=== PATIENT | female | born 1995 | race Caucasian/White ===

== ENCOUNTER 2017-05-24 21:11 | Emergency (ER) | payer OTHER ==
[2017-05-24] MEDS ORDERED: NS 0.9% 1000 ML* 1,000 ML IV ONE (22:10)
[2017-05-24] MEDS ORDERED: Ondansetron INJ* 2 MG/ML VIAL IV ONE (22:10)
[2017-05-24 23:06] LABS: Hematocrit 41 % (35-47); Hemoglobin 13.5 g/dl (12.0-16.0); Mean Corpuscular HGB Conc 33 g/dl (31-36); Mean Corpuscular Hemoglobin 30 pg (27-31); Mean Corpuscular Volume 90 fL (80-97); Mean Platelet Volume 8 um3 (7.4-10.4); Red Blood Count 4.51 10^6/ul (4.0-5.4); Red Cell Distribution Width 13 % (10.5-15)
[2017-05-24 23:25] LABS: ALT 12 U/L (7-52); AST 15 U/L (13-39); Albumin 4.2 g/dL (3.2-5.2); Alkaline Phosphatase 54 U/L (34-104); Anion Gap 7 mmol/L (2-11); BUN/Creatinine Ratio 16.7 (8-20); Blood Urea Nitrogen 14 mg/dL (6-24); CO2 Carbon Dioxide 32 mmol/L (22-32); Calcium 9.7 mg/dL (8.6-10.3); Chloride 100 mmol/L (101-111); EGFR African American 111.2 (>60); EGFR Non-African American 86.4 (>60); Globulin 3.3 g/dL (2-4); Glucose 102 mg/dL (70-100); Magnesium 2.1 mg/dL (1.9-2.7); Potassium 3.2 mmol/L (3.5-5.0); Sodium 139 mmol/L (133-145); Total Protein 7.5 g/dL (6.4-8.9)
[2017-05-25] MEDS ORDERED: Ondansetron ODT TAB* 4 MG PO ONE (00:16)
--- NOTE | 2017-05-25 00:18 | ED ---
GI/ HPI - HPI Summary HPI Summary: 22F presents with nausea and vomiting today. She states friend is with similar symptoms. denies eating anything different. has history of UC that is controlled. no fever. no diarrhea. no blood in stool. no previous abdominal surgeries. no fever, dysuria, hematuria, flank pain, urgency, frequency, vaginal discharge, or constipation. She feels dehyrated. She sometimes has generalized abdominal cramps. - History of Current Complaint Chief Complaint: EDNauseaVomitDiarrh Time Seen by Provider: 05/24/17 22:00 Stated Complaint: VOMITING Pain Intensity: 2 - Allergy/Home Medications Allergies/Adverse Reactions: Allergies Allergy/AdvReac Type Severity Reaction Status Date / Time Cefprozil [From Cefzil] Allergy Hives Verified 05/24/17 21:22 Penicillins [PCN] Allergy Hives Verified 05/24/17 21:22 PMH/Surg Hx/FS Hx/Imm Hx Endocrine/Hematology History: Denies: Hx Anticoagulant Therapy GI History: Reports: Hx Crohn's Disease - uc Infectious Disease History: No Infectious Disease History: Denies: Traveled Outside the [place] in Last 30 Days - Family History Known Family History: Positive: Hypertension - Social History Alcohol Use: Occasionally Substance Use Type: Reports: None Smoking Status (MU): Never Smoked Tobacco Review of Systems Negative: Fever Negative: Chest Pain Negative: Shortness Of Breath Positive: Abdominal Pain, Vomiting, Nausea. Negative: Diarrhea All Other Systems Reviewed And Are Negative: Yes Physical Exam Triage Information Reviewed: Yes Vital Signs On Initial Exam: Initial Vitals Temp Pulse Resp BP Pulse Ox 98.0 F 100 16 107/94 100 05/24/17 21:15 05/24/17 21:15 05/24/17 21:15 05/24/17 21:15 05/24/17 21:15 Vital Signs Reviewed: Yes Appearance: Positive: Well-Appearing Skin: Positive: Warm, Dry Head/Face: Positive: Normal Head/Face Inspection Eyes: Positive: Normal, EOMI, JESU, Conjunctiva Clear ENT: Positive: Normal ENT inspection, Pharynx normal, TMs normal Respiratory/Lung Sounds: Positive: Clear to Auscultation, Breath Sounds Present Cardiovascular: Positive: Normal, RRR Abdomen Description: Positive: Nontender, Soft Bowel Sounds: Positive: Present Musculoskeletal: Positive: Normal Neurological: Positive: Normal Psychiatric: Positive: Normal - Gorman Coma Scale Coma Scale Total: 15 Diagnostics - Vital Signs Vital Signs Temp Pulse Resp BP Pulse Ox 05/24/17 21:15 98.0 F 100 16 107/94 100 - Laboratory Lab Results: Lab Results 05/24/17 05/24/17 Range/Units 22:20 22:20 WBC 10.0 (3.5-10.8) 10^3/ul RBC 4.51 (4.0-5.4) 10^6/ul Hgb 13.5 (12.0-16.0) g/dl Hct 41 (35-47) % MCV 90 (80-97) fL MCH 30 (27-31) pg MCHC 33 (31-36) g/dl RDW 13 (10.5-15) % Plt Count 273 (150-450) 10^3/ul MPV 8 (7.4-10.4) um3 Neut % (Auto) 36.5 L (38-83) % Lymph % (Auto) 34.1 (25-47) % [place] % (Auto) 9.5 H (1-9) % Eos % (Auto) 18.8 H (0-6) % Baso % (Auto) 1.1 (0-2) % Absolute Neuts (auto) 3.6 (1.5-7.7) 10^3/ul Absolute Lymphs (auto) 3.4 (1.0-4.8) 10^3/ul Absolute Monos (auto) 0.9 H (0-0.8) 10^3/ul Absolute Eos (auto) 1.9 H (0-0.6) 10^3/ul Absolute Basos (auto) 0.1 (0-0.2) 10^3/ul Absolute Nucleated RBC 0.01 10^3/ul Nucleated RBC % 0.1 Sodium 139 (133-145) mmol/L Potassium 3.2 L (3.5-5.0) mmol/L Chloride 100 L (101-111) mmol/L Carbon Dioxide 32 (22-32) mmol/L Anion Gap 7 (2-11) mmol/L BUN 14 (6-24) mg/dL Creatinine 0.84 (0.51-0.95) mg/dL Est GFR ( Amer) 111.2 (>60) Est GFR (Non-Af Amer) 86.4 (>60) BUN/Creatinine Ratio 16.7 (8-20) Glucose 102 H (70-100) mg/dL Calcium 9.7 (8.6-10.3) mg/dL Magnesium 2.1 (1.9-2.7) mg/dL Total Bilirubin 0.40 (0.2-1.0) mg/dL AST 15 (13-39) U/L ALT 12 (7-52) U/L Alkaline Phosphatase 54 (34-104) U/L C-React Prot High Sens 0.50 mg/L Total Protein 7.5 (6.4-8.9) g/dL Albumin 4.2 (3.2-5.2) g/dL Globulin 3.3 (2-4) g/dL Albumin/Globulin Ratio 1.3 (1-3) Beta HCG, Quant < 0.60 mIU/mL Result Diagrams: 05/24/17 22:20 05/24/17 22:20 Lab Statement: Any lab studies that have been ordered have been reviewed, and results considered in the medical decision making process. GIGU Course/Dx - Course Course Of Treatment: 22F presents with nausea and vomiting today. She states friend is with similar symptoms. denies eating anything different. has history of UC that is controlled. no fever. no diarrhea. no blood in stool. no previous abdominal surgeries. no fever, dysuria, hematuria, flank pain, urgency , frequency, vaginal discharge, or constipation. She feels dehyrated. She sometimes has generalized abdominal cramps. on exam abdomen nontender. labs normal wbc. gave zofran and fluids and feeling better. patient understand and agrees with plan. - Diagnoses Differential Diagnoses - Female: Gastroenteritis (Viral), Gastroenteritis ( Bacterial), Urinary Tract Infection Provider Diagnoses: Vomiting Discharge - Discharge Plan Condition: Good Disposition: HOME Prescriptions: Ondansetron ODT TAB* [Zofran 4 MG Odt TAB*] 4 mg PO Q6H PRN #20 tab.odt PRN Reason: Nausea Patient Education Materials: Acute Nausea and Vomiting (ED) Referrals: [facility] [Primary Care Provider] - Additional Instructions: Can take Zofran every 6 hours as needed for nausea Drink small amounts of fluid as tolerated When able to eat follow BRAT diet: Bananas, rice, applesauce, toast Take ibuprofen or Tylenol for pain as needed every 6 hours Follow up with primary within 5 days Return to ED if develop fever that does not respond to Tylenol or ibuprofen, severe abdominal pain, or any new or worsening symptoms
[2017-05-25 01:07] VITALS: BP 111/83
== END 2017-05-25 01:06 | disposition home or self-care (01) ==
LOC: ED 21:11
DX: R11.10 Vomiting, unspecified (principal); K50.90 Crohn's disease, unspecified, without complications; Z32.02 Encounter for pregnancy test, result negative; Z88.1 Allergy status to other antibiotic agents; Z88.0 Allergy status to penicillin
CPT/HCPCS: 36415; 80053; 83735; 84702; 85025; 86141; 96361; 96374; 99284; A9270-GY; J2405

== ENCOUNTER 2017-05-29 13:06 | Emergency (ER) | payer OTHER ==
[2017-05-29 13:33] VITALS: BP 113/68
--- NOTE | 2017-05-29 15:10 | UC ---
Throat Pain/Nasal Arsenio HPI - HPI Summary HPI Summary: FOUR DAYS OF SORE THROAT SWOLLEN TONSILS FEVER. ON AZITHROMYCIN DAY #3, SYMPTOMS GETTING WORSE. - History of Current Complaint Chief Complaint: UCGeneralIllness Stated Complaint: SWOLLEN TONSILS Time Seen by Provider: 05/29/17 14:11 Hx Obtained From: Patient Hx Last Menstrual Period: last week Onset/Duration: Gradual Onset, Lasting Days Severity: Moderate Cough: None Associated Signs & Symptoms: Positive: Hoarseness, Fever - Epiglottits Risk Factors Epiglottis Risk Factors: Negative - Allergies/Home Medications Allergies/Adverse Reactions: Allergies Allergy/AdvReac Type Severity Reaction Status Date / Time Cefprozil [From Cefzil] Allergy Hives Verified 05/29/17 13:32 Penicillins [PCN] Allergy Hives Verified 05/29/17 13:32 Home Medications: Home Medications Adalimumab [Humira Pen] 40 mg SC WEEKLY 05/29/17 [History Confirmed 05/29/17] FLUoxetine CAP* [PROzac CAP*] 20 mg PO DAILY 05/29/17 [History Confirmed ] Mesalamine (NF) [Lialda (NF)] 1.2 gm PO DAILY 05/29/17 [History Confirmed ] PMH/Surg Hx/FS Hx/Imm Hx Previously Healthy: Yes Other History Of: Negative For: Anticoagulant Therapy - Surgical History Surgical History: None - Family History Known Family History: Positive: Hypertension - Social History Occupation: Student Lives: With Family Alcohol Use: Occasionally Substance Use Type: None Smoking Status (MU): Never Smoked Tobacco Review of Systems Constitutional: Fever Skin: Negative Eyes: Negative ENT: Sore Throat Respiratory: Negative Cardiovascular: Negative Gastrointestinal: Negative Genitourinary: Negative Motor: Negative Neurovascular: Negative Musculoskeletal: Negative Neurological: Negative Psychological: Negative Is Patient Immunocompromised?: No All Other Systems Reviewed And Are Negative: Yes Physical Exam Triage Information Reviewed: Yes Appearance: No Pain Distress, Well-Nourished, Ill-Appearing Vital Signs: Initial Vital Signs Temp 97.9 F 05/29/17 13:29 Pulse 106 05/29/17 13:29 Resp 16 05/29/17 13:29 BP 113/68 05/29/17 13:29 Pulse Ox 98 05/29/17 13:29 Vital Signs Reviewed: Yes Eye Exam: Normal ENT: Positive: Hearing grossly normal, Pharyngeal erythema, TM red, Tonsillar swelling, Tonsillar exudate Dental Exam: Normal Neck: Positive: Supple, Nontender, Enlarged Nodes @ - BILATERAL ANTERIOR LN Respiratory Exam: Normal Respiratory: Positive: Chest non-tender, Lungs clear, Normal breath sounds, No respiratory distress, No accessory muscle use Cardiovascular Exam: Normal Cardiovascular: Positive: RRR, No Murmur, Pulses Normal, Brisk Capillary Refill Abdominal Exam: Normal Abdomen Description: Positive: Nontender, No Organomegaly Musculoskeletal Exam: Normal Musculoskeletal: Positive: Strength Intact, ROM Intact Neurological Exam: Normal Psychological Exam: Normal Skin Exam: Normal Throat Pain/Nasal Course/Dx - Differential Dx/Diagnosis Differential Diagnosis/HQI/PQRI: Mononucleosis, Pharyngitis, Sinusitis, Tonsillitis, URI Provider Diagnoses: STREP TONSILITIS Discharge - Discharge Plan Condition: Stable Disposition: HOME Prescriptions: Clindamycin Cap(NF) [Clindamycin Cap 300 mg Cap(NF)] 300 mg PO TID #30 cap Patient Education Materials: Strep Throat (ED) Forms: *School Release Referrals: [facility] [Primary Care Provider] -
--- NOTE | 2017-05-31 14:54 | UC ---
Progress - Progress Note Progress Note: 3+ Strep group A Pt on clinda no change [facility] 05/31/17 [id number]
== END 2017-05-29 15:00 | disposition home or self-care (01) ==
LOC: UCEAST 13:06
DX: J03.00 Acute streptococcal tonsillitis, unspecified (principal); Z88.0 Allergy status to penicillin; B95.0 Streptococcus, group A, as the cause of diseases classified elsewhere
CPT/HCPCS: 87070; 87651; 99212; G0463

== ENCOUNTER 2017-06-13 13:37 | Emergency (ER) | payer OTHER ==
[2017-06-13 13:46] VITALS: BP 121/77
--- NOTE | 2017-06-13 14:45 | ED ---
Throat Pain/Nasal Congestion - HPI Summary HPI Summary: Pt here w/ tonsilitis x 1 month. Was seen here at on May 29, 2017 and dx'd strep. Was placed on clindamycin which she took for 7 days but then stopped as she developed a diffuse rash. Reports it's not pruritic unless she takes a hot shower - otherwise does not bother her. Has been taking benadryl at night - not sure if it's helping the rash. Tonsils are still swollen but she is able to drink and eat. She denies fever, chills, N/V/D, chest pain, cough, SOB, neck pain/stiffness, WILEY. She was seen at [facility] and tested for mono ( which she reports was negative) as she's had tonsilitis for 1 month now. She has an appt w/ ENT on Jun 21 to assess. Caveat: she has Ulcerative Colitis and has been on humira - stopped for 1 week while she had strep but then restarted last week and this week. Unfortunately she is allergic to PCN/ cephalosporins (mom reports reactions are anaphylactic). - History of Current Complaint Chief Complaint: [facility] Time Seen by Provider: 06/13/17 14:23 Hx Obtained From: Patient, Family/Senior Statistical Programmer - spoke w/ mother via phone - Allergies/Home Medications Allergies/Adverse Reactions: Allergies Allergy/AdvReac Type Severity Reaction Status Date / Time Cefprozil [From Cefzil] Allergy Hives Verified 06/13/17 13:46 Penicillins [PCN] Allergy Hives Verified 06/13/17 13:46 PMH/Surg Hx/FS Hx/Imm Hx Previously Healthy: No - tonsilitis x 1 month Endocrine/Hematology History: Reports: Autoimmune Disease - ulcerative colitis - on humira Denies: Hx Anticoagulant Therapy GI History: Reports: Hx Crohn's Disease - Ulcerative colitis Infectious Disease History: No Infectious Disease History: Denies: Traveled Outside the [place] in Last 30 Days - Family History Known Family History: Positive: Hypertension - Social History Occupation: Student Lives: Dormitory/Roommates Alcohol Use: Occasionally Hx Substance Use: No Substance Use Type: Reports: None Hx Tobacco Use: No Smoking Status (MU): Never Smoked Tobacco Review of Systems Constitutional: Negative Negative: Fever, Chills, Fatigue Eyes: Negative Negative: Photophobia, Blurred Vision, Diplopia, Drainage, Erythema Positive: Sore Throat. Negative: Ear Ache, Nasal Discharge Cardiovascular: Negative Negative: Chest Pain Respiratory: Negative Negative: Shortness Of Breath, Cough Gastrointestinal: Negative Negative: Abdominal Pain, Vomiting, Diarrhea, Nausea Positive: no symptoms reported. Negative: hematuria Musculoskeletal: Negative Negative: Arthralgia, Myalgia, Decreased ROM, Edema Positive: Rash Neurological: Negative Negative: Headache Psychological: Normal All Other Systems Reviewed And Are Negative: Yes Physical Exam Triage Information Reviewed: Yes Vital Signs On Initial Exam: Initial Vitals Temp Pulse Resp BP Pulse Ox 98.7 F 102 16 121/77 100 06/13/17 13:41 06/13/17 13:41 06/13/17 13:41 06/13/17 13:41 06/13/17 13:41 Vital Signs Reviewed: Yes Appearance: Positive: Well-Appearing, No Pain Distress, Well-Nourished Skin: Positive: Warm, Dry - diffuse pink maculopapular flaking spotted/patchy rash over torso - more prominent on anterior aspect , wraps around flanks Head/Face: Positive: Normal Head/Face Inspection - sinsues NTTP Eyes: Positive: Normal, EOMI, Conjunctiva Clear. Negative: Conjunctiva Inflammed, Discharge ENT: Positive: Hearing grossly normal, Pharynx normal, TMs normal, Tonsillar swelling, Uvula midline. Negative: Nasal congestion, Nasal drainage, Tonsillar exudate, Trismus, Muffled voice, Hoarse voice, Sinus tenderness Dental: Negative: Abscess @ Neck: Positive: Supple, Nontender, No Lymphadenopathy. Negative: Nuchal Rigidity Respiratory/Lung Sounds: Positive: Clear to Auscultation, Breath Sounds Present. Negative: Rales, Rhonchi, Wheezes Cardiovascular: Positive: Normal, RRR, S1, S2. Negative: Murmur, Rub Abdomen Description: Positive: Nontender, No Organomegaly, Soft Bowel Sounds: Positive: Present Musculoskeletal: Positive: Normal, Strength/ROM Intact Neurological: Positive: Normal, Sensory/Motor Intact, Alert, Oriented to Person Place, Time, CN Intact II-III, Reflexes Intact Psychiatric: Positive: Normal Diagnostics - Vital Signs Vital Signs Temp Pulse Resp BP Pulse Ox 06/13/17 13:41 98.7 F 102 16 121/77 100 - Laboratory Lab Statement: Any lab studies that have been ordered have been reviewed, and results considered in the medical decision making process. EENT Course/Dx - Course Course Of Treatment: Pt here w/ persistent tonsilitis x 1 month. Was dx'd w/ strep > 2 weeks ago and tx'd w/ clindamycin as she's PCN allergic. Stopped after 7 days d/t rash. Rash persists in presence but appears mild and is not bothersome to pt. She has UC for which she takes humira - stopped for 1 week but has returned to use for a full week and gave herself another shot this week. Ada was neg at [facility]. Repeat strep + here today. Checked a U/A for glomerulonephritis - pt's urine does not reveal blood beyond trace and no protein or bacteria. Okay for d/c w/ close monitoring. Discussed she either has recalcitrant strep d/t undertx w/ co-tx of humira or possibly colonized as she had fever, chills and worse ST at onset - has not had these since. Will initiate zpak w/ close f/u in the event this does not address strep or if she needs a longer course. Also encouraged to contact GI specialist to see if cessation of humira until strep clears is appropriate or not. Furthermore, converastion with mom about avioding steroids for rash and tonsils to reduce risk of further suppressing immune system - tonsilitis and rash are both tolerable. Offered supportive care. Printed a copy of urine lab for parents. Danger s/sx of when to return to ED discussed. Pt and mom agree w/ plan. - Diagnoses Provider Diagnoses: Acute streptococcal tonsillitis - Provider Notifications Discussed Care Of Patient With: Jeremy Saucedo Discharge - Discharge Plan Condition: Stable Disposition: HOME Prescriptions: Azithromycin TAB* [Zithromax TAB (Z-NAKUL) 250 mg #6 tabs] 2 tab PO .TODAY, THEN 1 DAILY #1 nakul Patient Education Materials: Strep Throat (ED) Forms: *School Release Referrals: [facility] [Primary Care Provider] - Additional Instructions: Gargle with warm salt water 2-3 x day Throat lozenges as needed for comfort Warm tea with honey Continue to drink plenty of hydrating fluids Sleep 8+ hours a night - nap when possible to allow body to heal Complete antibiotics as directed - followup with PCP prior to completion in the event you need a longer course Start probiotics in between doses to prevent diarrhea, yeast infection and flair up of ulcerative colitis - if any of these occur, call PCP or go to ED if dehydrated *If you develop fever, chills, difficulty breathing or swallowing, neck pain or stiff neck, worsening of rash, abdominal pain, vomiting or diarrhea, go to the ED CALL PCP TO DISCUSS CONTINUATION VS. CESSATION OF HUMIRA WHILE TREATING STREP THROAT
== END 2017-06-13 15:36 | disposition home or self-care (01) ==
LOC: UCEAST 13:37
DX: J03.00 Acute streptococcal tonsillitis, unspecified (principal); J35.01 Chronic tonsillitis
CPT/HCPCS: 81003; 87086; 87651; 99212; G0463

== ENCOUNTER 2017-07-24 03:24 | Emergency (ER) | payer OTHER ==
[2017-07-24] MEDS ORDERED: oxyCODONE/Acetamin 5/325 MG* TAB PO ONE (03:43)
[2017-07-24] MEDS ORDERED: Ondansetron ODT TAB* 4 MG PO ONE (03:44)
[2017-07-24 04:14] VITALS: BP 125/80
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
== END 2017-07-24 04:13 | disposition home or self-care (01) ==
LOC: ED 03:24
DX: S09.90XA Unspecified injury of head, initial encounter (principal); W50.0XXA Accidental hit or strike by another person, initial encounter; Y93.89 Activity, other specified; Y92.9 Unspecified place or not applicable; M54.2 Cervicalgia; R11.0 Nausea; J45.909 Unspecified asthma, uncomplicated; Z88.1 Allergy status to other antibiotic agents; K51.90 Ulcerative colitis, unspecified, without complications
CPT/HCPCS: 99282; A9270-GY

== ENCOUNTER 2018-03-11 23:05 | Emergency (ER) | payer SELFPAY ==
[2018-03-11] MEDS ORDERED: Morphine INJ* 2 MG/ML 1 ML SYRINGE (TWO MG - NEW SYRINGE VERSION) IV ONE (23:33)
[2018-03-11] MEDS ORDERED: Metoclopramide IV* 5 MG/ML 2 ML VIAL IV ONE (23:33)
[2018-03-11] MEDS ORDERED: Morphine INJ* 2 MG/ML 1 ML SYRINGE (TWO MG - NEW SYRINGE VERSION) IV PRN (23:33)
--- NOTE | 2018-03-11 23:40 | ED ---
Abdominal Pain/Female - HPI Summary HPI Summary: This patient is a 22 year old F presenting to [facility] with a chief complaint of constant left side abdominal pain since 16:00 today. Patient notes that her pain appears to worsen in waves. The patient rates the pain 6/10 in severity. Symptoms aggravated by food. Symptoms alleviated by nothing. Patient reports nausea and vomiting. Patient denies fever, diarrhea, burning with urination, or dysuria. Patient notes that she took a Zofran earlier today but it did not alleviate her symptoms. Patient has ulcerative colitis and notes she is just coming out of a flare-up. Patient notes that she has never had pain like this before. Patient also notes she may have digestive motility problems but has not yet received a diagnosis. Patient takes Entyvio. - History of Current Complaint Stated Complaint: ABD PAIN Hx Obtained From: Patient Hx Last Menstrual Period: 05/30/17 Onset/Duration: Sudden Onset, Lasting Hours, Still Present Timing: Constant Severity Initially: Mild Severity Currently: Mild Pain Intensity: 6 Pain Scale Used: 0-10 Numeric Location: Discrete At: LUQ Radiates: No Aggravating Factor(s): Food Alleviating Factor(s): Nothing Associated Signs and Symptoms: Positive: Nausea, Vomiting. Negative: Fever, Diarrhea Allergies/Adverse Reactions: Allergies Allergy/AdvReac Type Severity Reaction Status Date / Time cefprozil [From Cefzil] Allergy Hives Verified 03/11/18 23:20 PMH/Surg Hx/FS Hx/Imm Hx Endocrine/Hematology History: Denies: Hx Anticoagulant Therapy Respiratory History: Reports: Hx Asthma GI History: Reports: Hx Crohn's Disease - Ulcerative colitis - Surgical History Surgery Procedure, Year, and Place: colonoscopy Infectious Disease History: No Infectious Disease History: Denies: Traveled Outside the [place] in Last 30 Days - Family History Known Family History: Positive: Hypertension - Social History Occupation: Student Alcohol Use: Occasionally Hx Substance Use: No Substance Use Type: Reports: None Hx Tobacco Use: No Smoking Status (MU): Never Smoked Tobacco Review of Systems Negative: Fever Negative: Epistaxis Negative: Cough Positive: Abdominal Pain, Vomiting, Nausea. Negative: Diarrhea Negative: burning, dysuria, hematuria All Other Systems Reviewed And Are Negative: Yes Physical Exam - Summary Physical Exam Summary: Appearance: Well-appearing, Well-nourished, lying in bed comfortably Skin: Warm, dry, no obvious rash Eyes: sclera anicteric, no conjunctival pallor ENT: mucous membranes moist, pharynx appears normal Neck: Supple, nontender Respiratory: Clear to auscultation, no signs of respiratory distress Cardiovascular: Normal S1, S2. No murmurs. Normal distal pulses in tibial and radial bilaterally. Abdomen: Soft, tenderness in LUQ, no peritoneal signs, normal active bowel sounds present Musculoskeletal: Normal, Strength/ROM Intact Neurological: A&Ox3, awake and alert, mentation is normal, speech is fluent and appropriate Psychiatric: affect is normal, does not appear anxious or depressed Triage Information Reviewed: Yes Vital Signs On Initial Exam: Initial Vitals Temp Pulse Resp BP Pulse Ox 98.5 F 98 16 114/79 99 03/11/18 23:10 03/11/18 23:10 03/11/18 23:10 03/11/18 23:10 03/11/18 23:10 Vital Signs Reviewed: Yes Diagnostics - Vital Signs Vital Signs Temp Pulse Resp BP Pulse Ox 03/11/18 23:10 98.5 F 98 16 114/79 99 - Laboratory Result Diagrams: 03/11/18 23:43 03/11/18 23:43 Lab Statement: Any lab studies that have been ordered have been reviewed, and results considered in the medical decision making process. - CT CT Abd/Pelvis CT Interpretation: No Acute Changes - Impression: no acute findings in the abdomen or pelvis. No evidence for an acute colitis. Moderate amount of stool in the cecum, ascending colon, and transverse colon and a mild amount of stool in the descending colon. No evidence for a bowel obstruction. Dr. Goodman has reviewed this report. CT Interpretation Completed By: Radiologist Abdominal Pain Fem Course/Dx - Diagnoses Provider Diagnoses: Abdominal pain, Non-ulcer dyspepsia Discharge - Sign-Out/Discharge Documenting (check all that apply): Patient Departure - Discharge Plan Condition: Good Disposition: HOME Prescriptions: Omeprazole CAP* [Prilosec CAP* 20 MG] 20 mg PO DAILY #30 cap. [facility]errals[facility] [Z.BUSINESS, APPLICATION, OTHER] - - Billing Disposition and Condition Condition: GOOD Disposition: Home - Attestation Statements Document Initiated by Scribe: Yes Documenting Scribe: Anne Samuel Provider For Whom Scribe is Documenting (Include Credential): Олег Goodman MD Scribe Attestation: I, Anne Samuel, scribed for Олег Goodman MD on 03/12/18 at 0546. Scribe Documentation Reviewed: Yes Provider Attestation: The documentation as recorded by the scribe, Anne Samuel accurately reflects the service I personally performed and the decisions made by me, Олег Goodman MD
[2018-03-11 23:49] LABS: ABS Basophils 0 10^3/ul (0-0.2); ABS Eosinophils 0.3 10^3/ul (0-0.6); ABS Lymphocytes 2.3 10^3/ul (1.0-4.8); ABS Monocytes 0.7 10^3/ul (0-0.8); ABS Neutrophils 4.1 10^3/ul (1.5-7.7); ABS Nucleated RBC 0 10^3/ul; Eosinophil % 4.4 % (0-6); Hematocrit 40 % (35-47); Hemoglobin 13.5 g/dl (12.0-16.0); Lymphocyte % 30.8 % (25-47); Mean Corpuscular HGB Conc 34 g/dl (31-36); Mean Corpuscular Hemoglobin 30 pg (27-31); Mean Corpuscular Volume 87 fL (80-97); Mean Platelet Volume 7.6 um3 (7.4-10.4); Nucleated Red Blood Cells % 0; Platelet Count 290 10^3/ul (150-450); Red Blood Count 4.54 10^6/ul (4.00-5.40); Red Cell Distribution Width 14 % (10.5-15); White Blood Count 7.4 10^3/ul (3.5-10.8)
[2018-03-12] MEDS ORDERED: NS 0.9% 1000 ML*IV.FLUID IV ONE
[2018-03-12] MEDS ORDERED: Iohexol 300* (CONTRAST) 10 ML SDV IV ONE (01:30)
[2018-03-12 01:59] LABS: Urine Appearance Clear; Urine Blood Negative (Negative); Urine Color Straw; Urine Ketones Negative (Negative); Urine Protein Negative (Negative); Urine Specific Gravity 1.019 (1.010-1.030); Urine Urobilinogen Negative (Negative)
--- NOTE | 2018-03-12 02:52 | RAD ---
EXAM: CT Abdomen and Pelvis With Intravenous Contrast CLINICAL HISTORY: 22 years old, female; Left sided abdominal pain, nausea, and emesis. History of ulcerative colitis. TECHNIQUE: Axial computed tomography images of the abdomen and pelvis with intravenous contrast. All CT scans at this facility use at least one of these dose optimization techniques: automated exposure control; mA and/or kV adjustment per patient size (includes targeted exams where dose is matched to clinical indication); or iterative reconstruction. Coronal and sagittal reformatted images were created and reviewed. CONTRAST: 69 mL of OMNI administered intravenously. COMPARISON: No relevant prior studies available. FINDINGS: Lung bases: Normal. No mass. No consolidation. ABDOMEN: Liver: Normal. Gallbladder and bile ducts: No calcifications are seen in the gallbladder to suggest calculi. There is no gallbladder wall thickening, pericholecystic fluid, or pericholecystic inflammatory changes. No dilation of the intrahepatic or extrahepatic bile ducts is noted. Pancreas: Normal. Spleen: Normal. No splenomegaly. Adrenals: Normal. Kidneys and ureters: The kidneys are normal in appearance. No renal lesion is identified. No calculi are seen in the kidneys or ureters. There is no hydronephrosis or hydroureter. Stomach and bowel: There is no evidence for a bowel obstruction, diverticulosis, diverticulitis, colitis, pneumatosis intestinalis, intussusception, volvulus, or perforated viscus. The sigmoid colon and rectum are decompressed, limiting their optimal evaluation. There is a moderate amount of stool in the cecum, ascending colon, and transverse colon and a mild amount of stool in the descending colon. Enteric contrast material is present in the stomach and small bowel. There is no enteric contrast material in the colon. PELVIS: Appendix: Normal. There is no evidence for appendicitis. Bladder: The distended urinary bladder is normal in appearance. No stones or masses are seen in the bladder. The contour of the bladder is normal. Reproductive: The uterus is anterverted and unremarkable. The ovaries are unremarkable. ABDOMEN and PELVIS: Intraperitoneal space: No free air or free fluid. 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 The imaged bony structures are intact. There is no suspicious osteolytic or osteoblastic lesion. There is a mild to moderate levoscoliosis of the lumbar spine. Soft tissues: Unremarkable. Vasculature: The abdominal aorta is normal in caliber. The renal arteries, celiac artery, superior mesenteric artery, and inferior mesenteric artery are patent. The portal veins, splenic vein, superior mesenteric vein, and inferior mesenteric vein are patent. Lymph nodes: No lymphadenopathy. IMPRESSION: 1. No acute findings in the abdomen or pelvis. No evidence for an acute colitis. 2. Moderate amount of stool in the cecum, ascending colon, and transverse colon and a mild amount of stool in the descending colon. No evidence for a bowel obstruction.
[2018-03-12] MEDS ORDERED: Omeprazole CAP* 20 MG PO ONE (03:20)
[2018-03-12 03:43] VITALS: BP 119/65
== END 2018-03-12 03:43 | disposition home or self-care (01) ==
LOC: ED 23:05
CPT/HCPCS: 36415; 74177; 80053; 81003; 83690; 84702; 85025; A9270-GY; J2270; J2765; Q9967

== ENCOUNTER 2018-04-04 15:49 | Emergency (ER) | payer OTHER ==
[2018-04-04] MEDS ORDERED: Famotidine IV* 10 MG/ML 2 ML (20 mg) IV SLOW PU ONE (16:42)
[2018-04-04] MEDS ORDERED: Dexamethasone IV* 4 MG/ML 1 ML (4 MG) IV SLOW PU ONE (16:42)
--- NOTE | 2018-04-04 16:51 | ED ---
Allergic Reaction/Systemic - HPI Summary HPI Summary: 23 year old females presents with allergic reaction today. States she had a reaction to her humaria which she took two days ago. States the humaria normal makes her sick but she's never had this reaction before. 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 States that she felt very short of breath and felt like she was going to pass out. States she waited some time and then used her EpiPen. She called EMS and they gave her a DuoNeb and some Benadryl and she is feeling better. She denies any symptoms currently. She denies any chest or shortness breath. No difficulty swallowing. No rash. She is on humaria for ulcerative colitis. No recent illness. No other new products. Did not eat anything different. she has a history of asthma. - History of Current Complaint Chief Complaint: EDAllergicReaction Time Seen by Provider: 04/04/18 16:36 Hx Last Menstrual Period: 05/30/17 Pain Intensity: 0 - Allergies/Home Medications Allergies/Adverse Reactions: Allergies Allergy/AdvReac Type Severity Reaction Status Date / Time cefprozil [From Cefzil] Allergy Hives Verified 04/04/18 16:25 PMH/Surg Hx/FS Hx/Imm Hx Endocrine/Hematology History: Denies: Hx Anticoagulant Therapy Respiratory History: Reports: Hx Asthma GI History: Reports: Hx Crohn's Disease - Ulcerative colitis - Surgical History Surgery Procedure, Year, and Place: colonoscopy - Immunization History Immunizations Up to Date: Yes Infectious Disease History: No Infectious Disease History: Denies: Traveled Outside the [place] in Last 30 Days - Family History Known Family History: Positive: Hypertension - Social History Alcohol Use: Occasionally Hx Substance Use: No Substance Use Type: Reports: None Hx Tobacco Use: No Smoking Status (MU): Never Smoked Tobacco Review of Systems Negative: Fever Positive: Chest Pain Positive: Shortness Of Breath - resolved. Negative: Cough All Other Systems Reviewed And Are Negative: Yes Physical Exam Triage Information Reviewed: Yes Vital Signs On Initial Exam: Initial Vitals Temp Pulse Resp BP Pulse Ox 99.4 F 110 20 120/83 99 04/04/18 16:14 04/04/18 16:14 04/04/18 16:14 04/04/18 16:14 04/04/18 16:14 Vital Signs Reviewed: Yes Appearance: Positive: Well-Appearing Skin: Positive: Warm, Dry Head/Face: Positive: Normal Head/Face Inspection Eyes: Positive: Normal, EOMI, JESU, Conjunctiva Clear ENT: Positive: Normal ENT inspection, Pharynx normal, TMs normal Respiratory/Lung Sounds: Positive: Clear to Auscultation, Breath Sounds Present Cardiovascular: Positive: Normal, RRR Abdomen Description: Positive: Nontender, Soft Bowel Sounds: Positive: Present Musculoskeletal: Positive: Normal Neurological: Positive: Normal Psychiatric: Positive: Normal Diagnostics - Vital Signs Vital Signs Temp Pulse Resp BP Pulse Ox 04/04/18 16:14 99.4 F 110 20 120/83 99 - Laboratory Result Diagrams: 04/04/18 16:52 04/04/18 16:52 Lab Statement: Any lab studies that have been ordered have been reviewed, and results considered in the medical decision making process. Re-Evaluation - Re-Evaluation First Eval Re-Evaluation Time: 17:53 Change: Unchanged Comment: no symptoms still, feels comfortable going home Allergic Reaction Course/Dx - Course Course Of Treatment: 23 year old females presents with allergic reaction today. States she had a reaction to her humaria which she took two days ago. States the humaria normal makes her sick but she's never had this reaction before. 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 States that she felt very short of breath and felt like she was going to pass out. States she waited some time and then used her EpiPen. She called EMS and they gave her a DuoNeb and some Benadryl and she is feeling better. She denies any symptoms currently. She denies any chest or shortness breath. No difficulty swallowing. No rash. She is on humaria for ulcerative colitis. No recent illness. No other new products. Did not eat anything different. she has a history of asthma. on exam she has normal physical exam and is asx. lab work normal. gave decadon and pepcid and observed. will send home on prednisone. told to call gi to discuss meds. patient understand and agrees with plan. - Diagnoses Differential Diagnosis/HQI/PQRI: Positive: Anaphylaxis, Bronchospasm, Local Allergic Reaction Provider Diagnoses: Allergic reaction Discharge - Sign-Out/Discharge Documenting (check all that apply): Patient Departure - Discharge Plan Condition: Good Disposition: HOME Prescriptions: Famotidine TAB* [Pepcid 20 MG TAB*] 20 mg PO DAILY #4 tab hydrOXYzine HCL TAB* [Atarax 25 MG TAB*] 25 mg PO QID PRN #19 tab PRN Reason: Allergy Symptoms predniSONE TAB* [Deltasone TAB*] 50 mg PO DAILY #4 tab Patient Education Materials: Anaphylaxis (ED) Referrals: No Primary Care Phys,NOPCP [Primary Care Provider] - Additional Instructions: Take hydroxyzine every 6 hours for next 5 days Take Pepcid once a day for 5 days Take steroid once a day for 4 days starting tomorrow call GI to discuss reaction Return to ED if shortness of breath, chest pain, or if develop any new or worsening symptoms - Billing Disposition and Condition Condition: GOOD Disposition: Home
[2018-04-04 17:01] LABS: ABS Basophils 0 10^3/ul (0-0.2); ABS Eosinophils 0.1 10^3/ul (0-0.6); ABS Lymphocytes 1.4 10^3/ul (1.0-4.8); ABS Monocytes 0.8 10^3/ul (0-0.8); ABS Neutrophils 8.3 10^3/ul (1.5-7.7); ABS Nucleated RBC 0 10^3/ul; Eosinophil % 1.2 % (0-6); Hematocrit 39 % (35-47); Hemoglobin 12.9 g/dl (12.0-16.0); Lymphocyte % 13.6 % (25-47); Mean Corpuscular HGB Conc 33 g/dl (31-36); Mean Corpuscular Hemoglobin 30 pg (27-31); Mean Corpuscular Volume 89 fL (80-97); Nucleated Red Blood Cells % 0; Platelet Count 209 10^3/ul (150-450); Red Blood Count 4.39 10^6/ul (4.00-5.40); Red Cell Distribution Width 14 % (10.5-15); White Blood Count 10.6 10^3/ul (3.5-10.8)
[2018-04-04 17:20] LABS: EGFR Non-African American 113.1 (>60)
[2018-04-04 17:53] VITALS: BP 118/70
== END 2018-04-04 17:58 | disposition home or self-care (01) ==
LOC: ED 15:49
DX: T78.40XA Allergy, unspecified, initial encounter (principal); X58.XXXA Exposure to other specified factors, initial encounter; Y92.9 Unspecified place or not applicable
CPT/HCPCS: 36415; 80053; 84702; 85025; 86140; 96374; 96375; 99283; J1100

== ENCOUNTER 2018-06-01 18:03 | Emergency (ER) | payer OTHER ==
[2018-06-01] MEDS ORDERED: NS 0.9% 1000 ML* 1,000 ML IV ONE (18:40)
--- NOTE | 2018-06-01 19:01 | ED ---
Syncope/Near Syncope - HPI Summary HPI Summary: 23 year old female presents via EMS with syncopal episode. States at approximately 17:10 this evening she stood up to change her shirt and became lightheaded and loss consciousness. This was an unwitnessed episode but her roommate states that she called out to her and when she came into her room she was acting at baseline. She thinks she may have hit the back of her head as it is a little sore. Patient reports she has been having episodes feeling like her heart is beating very fast for the past 2 days. Denies headache, visual disturbances, speech difficulties, extremity weakness, numbness, tingling, chest pain, SOB, abdominal pain, nausea, vomiting, diarrhea, dysuria, frequency , urgency, loss of bowel or bladder control. - History Of Current Complaint Chief Complaint: EDSyncope Time Seen by Provider: 06/01/18 18:14 Hx Obtained From: Patient Onset/Duration: Sudden Onset Context: Unwitnessed, Loss Of Consciousness Associated Head Trauma: No Aggravating Factor(s): Position Change Alleviating Factor(s): Nothing Associated Signs And Symptoms: Palpitations - Allergies/Home Medications Allergies/Adverse Reactions: Allergies Allergy/AdvReac Type Severity Reaction Status Date / Time adalimumab [From Humira] Allergy Anaphylatic Verified 06/01/18 18:13 Shock cefprozil [From Cefzil] Allergy Hives Verified 04/04/18 16:25 infliximab [From Remicade] Allergy Unknown Verified 06/01/18 18:13 Reaction Details Tree Nuts Allergy Anaphylatic Verified 06/01/18 19:04 Shock Home Medications: Home Medications Entyvio* 1 dose INFUSION SEE INSTRUCTIONS 06/01/18 [History Confirmed 06/01/18] Mesalamine [Lialda] 1.2 gm PO QID 06/01/18 [History Confirmed 06/01/18] PMH/Surg Hx/FS Hx/Imm Hx Previously Healthy: Yes Endocrine/Hematology History: Denies: Hx Anticoagulant Therapy Respiratory History: Reports: Hx Asthma GI History: Reports: Other GI Disorders - Ulcerative colitis - Surgical History Surgery Procedure, Year, and Place: colonoscopy Infectious Disease History: No Infectious Disease History: Denies: Traveled Outside the [place] in Last 30 Days - Family History Known Family History: Positive: Hypertension - Social History Occupation: Student Lives: Dormitory/Roommates Alcohol Use: Occasionally Hx Substance Use: No Substance Use Type: Reports: None Hx Tobacco Use: No Smoking Status (MU): Never Smoked Tobacco Review of Systems Negative: Fever, Chills Negative: Photophobia, Blurred Vision, Diplopia Positive: Palpitations. Negative: Chest Pain Negative: Shortness Of Breath, Cough Negative: Abdominal Pain, Vomiting, Diarrhea, Nausea Negative: dysuria, frequency, incontinence, urgency Positive: Syncope. Negative: Headache, Weakness, Paresthesia, Numbness, Slurred Speech All Other Systems Reviewed And Are Negative: Yes Physical Exam - Summary Physical Exam Summary: GENERAL APPEARANCE: Well developed, well nourished, alert and cooperative, and appears to be in no acute distress. HEAD: Atraumatic. normocephalic. EYES: PERRL, EOM intact. Vision is grossly intact. EARS: External auditory canals and tympanic membranes clear, hearing grossly intact. NOSE: No nasal discharge. THROAT: Oral cavity and pharynx normal. No inflammation, swelling, exudate, or lesions. Teeth and gingiva in good general condition. NECK: Neck supple, non-tender without lymphadenopathy. CARDIAC: Normal S1 and S2. No S3, S4 or murmurs. Rhythm is regular. There is no peripheral edema, cyanosis or pallor. Extremities are warm and well perfused. Capillary refill is less than 2 seconds. LUNGS: Clear to auscultation and percussion without rales, rhonchi, wheezing or diminished breath sounds. ABDOMEN: Positive bowel sounds. Soft, nondistended, nontender. No guarding or rebound. No masses or hepatosplenomegally. MUSKULOSKELETAL: ROM intact to all extremities. No joint erythema or tenderness. Normal muscular development. Normal gait. BACK: Examination of the spine reveals normal gait and posture, no spinal deformity or tenderness, decreased range of motion or muscular spasm. EXTREMITIES: No significant deformity or joint abnormality. No edema. Peripheral pulses intact. NEUROLOGICAL: CN II-XII intact. Strength and sensation symmetric and intact throughout. Reflexes 2+ throughout. Cerebellar testing normal. SKIN: Skin normal color, texture and turgor with no lesions or eruptions. Vital Signs On Initial Exam: Initial Vitals Temp Pulse Resp BP Pulse Ox 99 F 100 18 126/88 99 06/01/18 18:09 06/01/18 18:09 06/01/18 18:09 06/01/18 18:09 06/01/18 18:09 Diagnostics - Vital Signs Vital Signs Temp Pulse Resp BP Pulse Ox 06/01/18 18:43 97 19 130/85 100 06/01/18 18:13 94 22 132/89 100 06/01/18 18:09 99 F 100 18 126/88 99 - Laboratory Result Diagrams: 06/01/18 19:18 06/01/18 19:18 Lab Statement: Any lab studies that have been ordered have been reviewed, and results considered in the medical decision making process. - EKG No standard instances Cardiac Rate: NL EKG Rhythm: Sinus Rhythm ST Segment: Normal Ectopy: None Summary of EKG Findings: NSR without ectopy. QTc 484 Course/Dx Course Of Treatment: 23 year old female presents via EMS with syncopal episode. States at approximately 17:10 this evening she stood up to change her shirt and became lightheaded and loss consciousness. This was an unwitnessed episode but her roommate states that she called out to her and when she came into her room she was acting at baseline. She thinks she may have hit the back of her head as it is a little sore. Patient reports she has been having episodes feeling like her heart is beating very fast for the past 2 days. Denies headache, visual disturbances, speech difficulties, extremity weakness, numbness, tingling, chest pain, SOB, abdominal pain, nausea, vomiting, diarrhea, dysuria, frequency , urgency, loss of bowel or bladder control. Her exam, orthostatic VS, labs, and EKG were unremarkable. Vital signs remained stable throughout her evaluation and there were no adverse episodes noted during her cardiac monitoring. She was able to ambulate well in the unit with no further syncopal episodes. Suspect that her event was an orthostatic syncope since it was associated with a sudden change in postion however with her reports of feeling as if her heart has been beating fast for the last few days I cannot fully rule out a cardiac origin. She has been referred to the [facility] for further evaluation since she does not have a local PCP. Warning symptoms were reviewed with the patient. Verbalizes understanding and agrees with POC. - Diagnoses Differential Diagnosis/HQI/PQRI: Positive: Dysrhythmia, GI Bleed, Hypoglycemia, Hypovolemia, Seizure, Vasovagal Episode Provider Diagnoses: Syncope Discharge - Sign-Out/Discharge Documenting (check all that apply): Patient Departure - Discharge Plan Condition: Stable Disposition: HOME Patient Education Materials: Syncope (ED) Referrals: No Primary Care Phys,NOPCP [Primary Care Provider] - [facility] [Outside] - 5 Days (Call for appointment) Additional Instructions: Your exam and lab work performed in the emergency room today were unremarkable. I suspect that you had orthostatic syncopal episode however with your reports of feeling as if your heart has been beating very fast I cannot fully rule out that this may be related. Stay well hydrated. Avoid alcoholic and caffeineated beverages. Eat a heathy well balanced diet. Go slow when you are changing positions to make sure you are not getting lightheaded or dizzy before you start walking. Follow up with the [facility] within the next 5 days for further evaluation of your symptoms. Return to the emergency room if you develop fever greater than 100.5 F, have a sudden severe headache, loss of consciousness, visual disturbances, weakness, numbness, tingling in your arms or legs, difficulty speaking, chest pain, shortness of breath, or any worsening of symptoms. - Billing Disposition and Condition Condition: STABLE Disposition: Home
[2018-06-01 19:30] LABS: ABS Basophils 0 10^3/ul (0-0.2); ABS Eosinophils 0.2 10^3/ul (0-0.6); ABS Lymphocytes 1.7 10^3/ul (1.0-4.8); ABS Monocytes 0.7 10^3/ul (0-0.8); ABS Nucleated RBC 0 10^3/ul; Eosinophil % 2.2 %; Hematocrit 38 % (35-47); Hemoglobin 12.6 g/dl (12.0-16.0); Mean Corpuscular HGB Conc 33 g/dl (31-36); Mean Corpuscular Hemoglobin 30 pg (27-31); Mean Corpuscular Volume 89 fL (80-97); Mean Platelet Volume 8.1 fL (7.4-10.4); Nucleated Red Blood Cells % 0; Platelet Count 265 10^3/ul (150-450); Red Blood Count 4.24 10^6/ul (4.00-5.40); Red Cell Distribution Width 14 % (10.5-15); White Blood Count 7.6 10^3/ul (3.5-10.8)
[2018-06-01 19:49] LABS: EGFR Non-African American 139.5 (>60)
[2018-06-01 20:06] LABS: Urine Appearance Clear; Urine Blood Negative (Negative); Urine Color Yellow; Urine Ketones 1+ (Negative); Urine Protein Negative (Negative); Urine Red Blood Cell Trace(0-2/hpf) (Absent); Urine Specific Gravity 1.013 (1.010-1.030); Urine Urobilinogen Negative (Negative); Urine White Blood Cell Trace(0-5/hpf) (Absent)
[2018-06-01 20:30] VITALS: BP 133/84
== END 2018-06-01 20:50 | disposition home or self-care (01) ==
LOC: ED 18:03
DX: R55 Syncope and collapse (principal); Z88.1 Allergy status to other antibiotic agents; Z88.8 Allergy status to other drugs, medicaments and biological substances
CPT/HCPCS: 36415; 80053; 81003; 81015; 83735; 84443; 84484; 85025; 87086; 93005; 96360; 99283

== ENCOUNTER 2018-06-03 14:00 | Emergency (ER) | payer OTHER ==
--- NOTE | 2018-06-03 14:19 | ED ---
Influenza-Like Illness - HPI Summary HPI Summary: A 23 y/o female presents to the ED c/o generalized sickness. In the ED room, the patient has a pulse of 114 BPM, O2 saturation of 100%, and blood pressure of 117/73. As per triage, "Seen here on for syncope, not feeling well for the last 3 days with fevers, body aches, weakness, sore throat. Tested NEG for strep". According to the patient, on (06/01/2018) she passed out and came [place] [facility] On that Tuesday, she was not feeling well and felt lousy. Today, she experiences fever, body aches, and chills. Additionally, she has headaches with some cough and sore throat. She denies any abdominal pain, photophobia, and neck pain. She noted that her work up in ED which included strep test, blood work, EKG were all within normal limits. She did not have her flu shot because of her ulcerative colitis. No major surgeries. LKMP was last week. SHx of no smoking, no recreational drugs, occasional ETOH. Patient did take Tylenol and Celebrex earlier for fever. - History of Current Complaint Chief Complaint: EDFluSymptoms Time Seen by Provider: 06/03/18 14:16 Hx Obtained From: Patient Onset/Duration: Sudden Onset, Lasting Days, Still Present Associated Signs & Symptoms: Fever, Cough, Sore Throat, Headache - Allergy/Home Medications Allergies/Adverse Reactions: Allergies Allergy/AdvReac Type Severity Reaction Status Date / Time adalimumab [From Humira] Allergy Anaphylatic Verified 06/03/18 14:24 Shock cefprozil [From Cefzil] Allergy Hives Verified 06/03/18 14:24 infliximab [From Remicade] Allergy Unknown Verified 06/03/18 14:24 Reaction Details Tree Nuts Allergy Anaphylatic Verified 06/03/18 14:24 Shock PMH/Surg Hx/FS Hx/Imm Hx Endocrine/Hematology History: Denies: Hx Anticoagulant Therapy Respiratory History: Reports: Hx Asthma GI History: Reports: Hx Crohn's Disease - Ulcerative colitis, Other GI Disorders - Ulcerative colitis - Surgical History Surgery Procedure, Year, and Place: colonoscopy Infectious Disease History: No Infectious Disease History: Denies: Traveled Outside the [place] in Last 30 Days - Family History Known Family History: Positive: Hypertension - Social History Alcohol Use: Occasionally Hx Substance Use: No Substance Use Type: Reports: None Hx Tobacco Use: No Smoking Status (MU): Never Smoked Tobacco Review of Systems Positive: Fever, Chills Negative: Photophobia Positive: Sore Throat Positive: Cough Negative: Abdominal Pain Positive: Other - POSITIVE: Body aches; NEGATIVE: Neck pain Positive: Headache All Other Systems Reviewed And Are Negative: Yes Physical Exam - Summary Physical Exam Summary: GENERAL: Patient is a well-developed and nourished female who is lying comfortable in the stretcher. Patient is not in any acute respiratory distress. HEAD AND FACE: Normocephalic EYES: PERRLA, EOMI x 2. EARS: Hearing grossly intact. MOUTH: Oropharynx within normal limits. NECK: Supple, trachea is midline, no adenopathy, no JVD, no carotid bruit. CHEST: Symmetric, no tenderness at palpation LUNGS: Clear to auscultation bilaterally. No wheezing or crackles. CVS: tachycardic, S1 and S2 present, no murmurs or gallops appreciated. ABDOMEN: Soft, non-tender. Bowel sounds are normal. No abdominal abnormal pulsations. EXTREMITIES: Full ROM in all major joints, no edema, no cyanosis or clubbing. NEURO: Alert and oriented x 3. No acute neurological deficits. Speech is normal and follows commands. SKIN: Dry and warm Triage Information Reviewed: Yes Vital Signs On Initial Exam: Initial Vitals Temp Pulse Resp BP Pulse Ox 100.0 F 121 14 118/70 97 06/03/18 14:11 06/03/18 14:11 06/03/18 14:11 06/03/18 14:11 06/03/18 14:11 Vital Signs Reviewed: Yes Diagnostics - Vital Signs Vital Signs Temp Pulse Resp BP Pulse Ox 06/03/18 14:11 100.0 F 121 14 118/70 97 - Laboratory Result Diagrams: 06/03/18 15:04 06/03/18 15:04 Lab Statement: Any lab studies that have been ordered have been reviewed, and results considered in the medical decision making process. - Radiology CXR Radiology Interpretation Completed By: Radiologist - No radiographic evidence of acute cardiopulmonary disease. ED PHYSICIAN REVIEWED THIS RADIOLOGY REPORT. Flu Symptom Course/Dx - Course Course Of Treatment: A 23 y/o female presents to the ED c/o generalized sickness. In the ED room, the patient has a pulse of 114 BPM, O2 saturation of 100%, and blood pressure of 117/73. According to the patient, on (2017) she passed out and came [place] [facility]. On that Tuesday, she was not feeling well and felt lousy. Today, she experiences fever, body aches, and chills. Additionally, she has headaches with some cough and sore throat. She denies any abdominal pain, photophobia, and neck pain. She noted that her work up in ED which included strep test, blood work, EKG were all within normal limits. Physical examination revealed the patient was tachycardic. A CXR revealed no radiographic evidence of acute cardiopulmonary disease. Hematology, urinalysis, and serology were done. Labs significant for negative for monoscreen, influenza A and B, group A strep rapid, all were within normal limits. In the ED course, the patient received Decadron, Toradol, and IV fluids. Patient will be discharged with a diagnosis of viral syndrome. Patient is to follow up with primary care provider in 1-3 days. Patient is to return to ED for any new or worsening symptoms. Patient is agreeable with this plan. I discussed results with patient and she reports feeling better. He is hemodynamically stable and safe for discharge. Strict return precautions given and he will otherwise follow up with his PCP. - Diagnoses Provider Diagnoses: Viral syndrome Discharge - Sign-Out/Discharge Documenting (check all that apply): Patient Departure - DISCHARGE - Discharge Plan Condition: Stable Disposition: HOME Patient Education Materials: Viral Syndrome (ED) Referrals: No Primary Care Phys,NOPCP [Primary Care Provider] - 3 Days Additional Instructions: FOLLOW UP WITH PRIMARY CARE PROVIDER IN 1-3 DAYS. RETURN TO ED FOR ANY NEW OR WORSENING SYMPTOMS. - Billing Disposition and Condition Condition: STABLE Disposition: Home - Attestation Statements Document Initiated by Scribe: Yes Documenting Scribe: Jabari Parnell Provider For Whom Ibrahima is Documenting (Include Credential): Stan Craig MD Scribe Attestation: Jabari Reyna, scribed for Stan Craig MD on 06/03/18 at 1811. Scribe Documentation Reviewed: Yes Provider Attestation: The documentation as recorded by the scribe, Jabari Parmjit accurately reflects the service I personally performed and the decisions made by me, Stan Craig MD Status of Scribe Document: Viewed
[2018-06-03] MEDS ORDERED: NS 0.9% 1000 ML* 1,000 ML IV ONE ×2 (14:43→14:46)
[2018-06-03] MEDS ORDERED: Dexamethasone IV* 4 MG/ML 1 ML (4 MG) IV SLOW PU ONE (14:45)
[2018-06-03] MEDS ORDERED: Ketorolac INJ* 15 MG/ML 1 ML VIAL IV PUSH ONE (14:46)
[2018-06-03 15:21] LABS: ABS Basophils 0.1 10^3/ul (0-0.2); ABS Eosinophils 0.2 10^3/ul (0-0.6); ABS Lymphocytes 0.4 10^3/ul (1.0-4.8); ABS Monocytes 0.6 10^3/ul (0-0.8); ABS Neutrophils 4.3 10^3/ul (1.5-7.7); ABS Nucleated RBC 0 10^3/ul; Eosinophil % 2.8 %; Hematocrit 41 % (35-47); Hemoglobin 13.7 g/dl (12.0-16.0); Lymphocyte % 8.1 %; Mean Corpuscular HGB Conc 33 g/dl (31-36); Mean Corpuscular Hemoglobin 30 pg (27-31); Mean Corpuscular Volume 89 fL (80-97); Mean Platelet Volume 7.5 fL (7.4-10.4); Nucleated Red Blood Cells % 0; Platelet Count 235 10^3/ul (150-450); Red Blood Count 4.65 10^6/ul (4.00-5.40); Red Cell Distribution Width 14 % (10.5-15); White Blood Count 5.5 10^3/ul (3.5-10.8)
[2018-06-03 15:38] LABS: EGFR Non-African American 123.8 (>60)
[2018-06-03 17:16] LABS: Urine Appearance Cloudy; Urine Blood Negative (Negative); Urine Color Yellow; Urine Ketones 2+ (Negative); Urine Protein Negative (Negative); Urine Red Blood Cell Absent (Absent); Urine Specific Gravity 1.021 (1.010-1.030); Urine Urobilinogen Negative (Negative); Urine White Blood Cell 1+(6-10/hpf) (Absent)
[2018-06-03 18:03] VITALS: BP 107/69
== END 2018-06-03 18:03 | disposition home or self-care (01) ==
LOC: ED 14:00
DX: B34.9 Viral infection, unspecified (principal); Z88.8 Allergy status to other drugs, medicaments and biological substances; Z88.1 Allergy status to other antibiotic agents; Z91.018 Allergy to other foods
CPT/HCPCS: 36415; 71046; 80053; 81003; 81015; 83605; 84702; 85025; 86140; 86308; 87040; 87077; 87086; 87651; 96374; 96375; 99283; J1100; J1885

== ENCOUNTER 2018-07-28 09:25 | Emergency (ER) | payer OTHER ==
[2018-07-28 10:16] VITALS: BP 112/70
--- NOTE | 2018-07-28 10:55 | UC ---
Abdominal Pain Female HPI - HPI Summary HPI Summary: PATIENT WITH A HISTORY OF ULCERATIVE COLITIS COMES IN COMPLAINING OF 3 DAYS OF EPIGASTRIC PAIN. STARTS 1-2 HOURS AFTER EATING, LASTS FOR ABOUT AN HOUR AND THEN SPONTANEOUSLY RESOLVES. PATIENT STATES THE PAIN IS QUITE INTENSE AND TAKES HER TO THE FLOOR. SHE HAS ASSOCIATED NAUSEA BUT NO VOMITING. NO CHANGE IN HER BOWEL HABITS. DENIES ANY URINARY SYMPTOMS. NO FEVER. - History of Current Complaint Chief Complaint: UCGI Stated Complaint: STOMACH COMPLAINT Time Seen by Provider: 07/28/18 10:35 Hx Obtained From: Patient Hx Last Menstrual Period: 07/21/18 Onset/Duration: Sudden Onset, Lasting Days, Still Present Timing: Intermittent Episodes Lasting: - 1 HOUR Severity Initially: Moderate Severity Currently: None Pain Intensity: 0 Pain Scale Used: 0-10 Numeric Location: Epigastric Radiates: Yes Radiates to: Back Character: Sharp Aggravating Factor(s): Food Alleviating Factor(s): Spontaneous Resolution Associated Signs and Symptoms: Positive: Back Pain, Decreased Appetite, Nausea. Negative: Diaphoresis, Fever, Cough, Constipation, Blood in Stool, Urinary Symptoms, Vomiting, Diarrhea Allergies/Adverse Reactions: Allergies Allergy/AdvReac Type Severity Reaction Status Date / Time adalimumab [From Humira] Allergy Anaphylatic Verified 07/28/18 12:42 Shock cefprozil [From Cefzil] Allergy Hives Verified 07/28/18 12:42 infliximab [From Remicade] Allergy Unknown Verified 07/28/18 12:42 Reaction Details Tree Nuts Allergy Anaphylatic Verified 07/28/18 12:42 Shock PMH/Surg Hx/FS Hx/Imm Hx Respiratory History: Asthma Other GI/ History: ULCERATIVE COLITIS Other History Of: Negative For: Anticoagulant Therapy - Surgical History Surgical History: Yes Surgery Procedure, Year, and Place: colonoscopy - October 2017 - Family History Known Family History: Positive: Hypertension - Social History Alcohol Use: Occasionally Substance Use Type: None Smoking Status (MU): Never Smoked Tobacco - Immunization History Most Recent Influenza Vaccination: unknown Review of Systems All Other Systems Reviewed And Are Negative: Yes Constitutional: Positive: Negative Respiratory: Positive: Negative Cardiovascular: Positive: Negative Gastrointestinal: Positive: Abdominal Pain, Nausea. Negative: Vomiting Genitourinary: Positive: Negative Physical Exam Triage Information Reviewed: Yes Appearance: Well-Appearing, No Pain Distress, Well-Nourished Vital Signs: Initial Vital Signs Temp 97.7 F 02/01/19 10:09 Pulse 80 07/28/18 10:09 Resp 18 07/28/18 10:09 BP 112/70 07/28/18 10:09 Pulse Ox 100 07/28/18 10:09 Vital Signs Reviewed: Yes Eyes: Positive: Conjunctiva Clear ENT: Positive: Hearing grossly normal Neck: Positive: Supple Respiratory Exam: Normal Cardiovascular Exam: Normal Abdomen Description: Positive: Nontender, Soft. Negative: CVA Tenderness (R), CVA Tenderness (L), Distended, Guarding Bowel Sounds: Positive: Present Musculoskeletal: Positive: No Edema Neurological: Positive: Alert Psychological: Positive: Age Appropriate Behavior Skin: Negative: Rashes Diagnostics - Radiology RUQ US Radiology Interpretation Completed By: Radiologist Summary of Radiographic Findings: UNREMARKABLE Abd Pain Female Course/Dx - Course Course Of Treatment: US UNREMARKABLE. PT WITH NORMAL EXAM. ADVISED LABS AND OUTPT EVAL WITH RECOMMENDATION TO GO TO ER IF SX WORSEN. PT PREFERS TO GO TO ER DIRECTLY FROM HERE. - Differential Dx/Diagnosis Provider Diagnosis: Epigastric abdominal pain Discharge - Sign-Out/Discharge Documenting (check all that apply): Patient Departure All imaging exams completed and their final reports reviewed: Yes - Discharge Plan Condition: Stable Disposition: HOME Patient Education Materials: Abdominal Pain (ED) Referrals: No Primary Care Phys,NOPCP [Primary Care Provider] - Additional Instructions: ULTRASOUND TODAY UNREMARKABLE. IF YOUR SYMPTOMS REMAIN STABLE YOU CAN MANAGE THIS (AT LEAST INITIALLY) AN OUTPATIENT. HOWEVER YOU HAVE OPTED TO GO TO THE ER TODAY FOR MORE IMMEDIATE EVALUATION WHICH IS FINE. CALL THE NUMBER BELOW FOR ASSISTANCE IN ESTABLISHING WITH A PCP An additional resource available to assist in finding the appropriate physician for your health care needs is [facility] ([facility]). You may contact them by calling [phone]. - Billing Disposition and Condition Condition: STABLE Disposition: Home
== END 2018-07-28 12:06 | disposition home or self-care (01) ==
LOC: UCEAST 09:25
DX: R10.13 Epigastric pain (principal); J45.909 Unspecified asthma, uncomplicated; Z88.8 Allergy status to other drugs, medicaments and biological substances; Z88.1 Allergy status to other antibiotic agents; Z91.018 Allergy to other foods
CPT/HCPCS: 76705; 81003; 87086; 99211; G0463